=== PATIENT | male | born 1965 | race Caucasian/White ===

== ENCOUNTER 2019-12-20 20:58 | Emergency (ER) | payer SELFPAY ==
[~2019-12-20] VITALS: Ht 172.7 cm; Wt 86.4 kg
[2019-12-20] MEDS ORDERED: METF-961 PO (21:15)
[2019-12-20] MEDS ORDERED: ACETAMINOPHEN 325 MG TABLET PO ONE (23:00)
[2019-12-20] MEDS ORDERED: INSULIN REGULAR, HUMAN 100 UNITS/ML SQ ONE (23:00)
[2019-12-21] MEDS ORDERED: AZITHROMYCIN 500 MG TABLET PO ONE (00:15)
[2019-12-21 00:30] VITALS: BP 136/61
[2019-12-21 19:47] LABS: GLUCOMETER DEV NAME(LOC) AHU.; GLUCOSE,POINT OF CARE 327 MG/DL (70-110)
== END 2019-12-21 01:00 | disposition home or self-care (01) ==
LOC: EMS 21:01
DX: U07.1 COVID-19 (principal); J12.89 Other viral pneumonia; E11.65 Type 2 diabetes mellitus with hyperglycemia; Z88.0 Allergy status to penicillin
CPT/HCPCS: 71045; 82962; 96372; 99284; U0003

== ENCOUNTER 2020-01-02 11:08 | Emergency (ER) | payer MEDICAID, SELFPAY ==
[~2020-01-02] VITALS: Ht 177.8 cm; Wt 81.8 kg
[~2020-01-02 11:08] MED LIST: METF-961 PO
[2020-01-02] MEDS ORDERED: SODIUM CHLORIDE 0.9% 1,000 ML IV ONE (12:30)
[2020-01-02 14:06] LABS: GLUCOMETER DEV NAME(LOC) AHU.; GLUCOSE,POINT OF CARE 298 MG/DL (70-110)
[2020-01-02 14:33] VITALS: BP 146/82
== END 2020-01-02 15:00 | disposition home or self-care (01) ==
LOC: EMS 11:10
DX: Z03.818 Encounter for observation for suspected exposure to other biological agents ruled out (principal); E11.65 Type 2 diabetes mellitus with hyperglycemia; E78.00 Pure hypercholesterolemia, unspecified; Z88.0 Allergy status to penicillin; Z79.84 Long term (current) use of oral hypoglycemic drugs
CPT/HCPCS: 82962; 96360; 99283; J7030; U0003